=== PATIENT | male | born 1965 | race Caucasian/White ===

== ENCOUNTER 2020-07-29 15:31 | Emergency (ER) | payer OTHER ==
[~2020-07-29] VITALS: Ht 185.4 cm; Wt 136.1 kg
[2020-07-29 15:55] VITALS: BP 173/94
--- NOTE | 2020-07-29 18:26 | NUR ---
xr at bedside for thumb. r thumb a little red, warm, swollen. as
--- NOTE | 2020-07-29 18:41 | NUR ---
barrera gardner in room for reeval. as
--- NOTE | 2020-07-29 18:52 | NUR ---
report to tobi castro. as
--- NOTE | 2020-07-29 18:55 | NUR ---
REPORT FROM LITZY DAWSON ASSUMING CARE OF PT AT THIS TIME
--- NOTE | 2020-07-29 19:09 | NUR ---
Patient/Caregiver given discharge instructions and they have confirmed that they understand the instructions. Patient ambulatory with steady gait.
== END 2020-07-29 19:10 | disposition home or self-care (01) ==
LOC: ED 16:30
DX: S61.031A Puncture wound without foreign body of right thumb without damage to nail, initial encounter (principal); E11.9 Type 2 diabetes mellitus without complications; X58.XXXA Exposure to other specified factors, initial encounter; Y93.89 Activity, other specified; Y92.89 Other specified places as the place of occurrence of the external cause; Y99.8 Other external cause status
CPT/HCPCS: 99283

== ENCOUNTER → 2020-08-18 | Outpatient (CLI) | payer OTHER | END | disposition home or self-care (01) | LOC: RAD 09:05 | PROVIDERS: ATTEND Internal Medicine Infectious Disease | DX: Z45.2 Encounter for adjustment and management of vascular access device (principal); E11.9 Type 2 diabetes mellitus without complications; F17.210 Nicotine dependence, cigarettes, uncomplicated; Z79.2 Long term (current) use of antibiotics; Z88.0 Allergy status to penicillin; Z72.89 Other problems related to lifestyle | CPT/HCPCS: 36573; C1751 ==